=== PATIENT | male | born 1960 | race Caucasian/White ===

== ENCOUNTER 2020-08-18 19:28 | Inpatient (IN) | payer MEDICARE, OTHER ==
[2020-08-18 19:40] VITALS: BP 149/87
[2020-08-18] MEDS ORDERED: METF-440 PO (19:55)
[2020-08-18] MEDS ORDERED: DIVA-78 PO (19:55)
[2020-08-18] MEDS ORDERED: TRAZ150T75 PO (19:55)
[2020-08-18] MEDS ORDERED: CLON0.5T4 PO (19:55)
[2020-08-18] MEDS ORDERED: MULT-754 PO (19:55)
[2020-08-18] MEDS ORDERED: BLOO-1672 MC (19:55)
[2020-08-18] MEDS ORDERED: LISI-607 PO (19:55)
--- NOTE | 2020-08-18 20:00 | NUR ---
PAGED HOSPITALIST FOR ADMITTING ORDERS
[2020-08-18] MEDS ORDERED: PANT40TA2 PO (20:17)
[2020-08-18] MEDS ORDERED: ACET325C7 PO (20:17)
[2020-08-18] MEDS ORDERED: DOCU-141 PO (20:17)
[2020-08-18] MEDS ORDERED: LEVO50TA8 PO (20:17)
[2020-08-18] MEDS ORDERED: ENOX40DI SQ (20:17)
[2020-08-18] MEDS ORDERED: ATOR80TA PO (20:17)
[2020-08-18] MEDS ORDERED: FURO-145 IV (20:17)
[2020-08-18] MEDS ORDERED: ONDA-97 IV (20:17)
[2020-08-18] MEDS ORDERED: ASPI-1169 PO (20:17)
[2020-08-18] MEDS ORDERED: HYDR-4076 PO (20:17)
--- NOTE | 2020-08-18 20:30 | NUR ---
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 NEEDS ATTENDED AND STABLE
--- NOTE | 2020-08-18 21:25 | NUR ---
PAGED HOSPITALIST FOR ADMITTING ORDERS PER HOSPITALIST HE WILL LOOK AT IT
--- NOTE | 2020-08-18 22:30 | NUR ---
SPOKE TO Ruel GO UP WITH HOSPITALIST ADMITTING ORDERS AWAITING ORDERS
[2020-08-19] VITALS (27 sets, daily range): BP systolic 110–230; BP diastolic 70–171
--- NOTE | 2020-08-19 00:32 | NUR ---
PAGED AND FF UP WITH HOSPITALIST ADMITTING ORDERS PER HOSPITALIST HE WILL ENTER IT
[2020-08-19] MEDS ORDERED: MAGNESIUM HYDROXIDE 30 ML UDC PO PRN (01:00)
[2020-08-19] MEDS ORDERED: MAG HYDROX/AL HYDROX/SIMETH 30 ML UDC PO PRN (01:00)
[2020-08-19] MEDS ORDERED: *INSULIN REGULAR(HUMULIN R)HUM 100 UNIT/ML VIAL SQ PRN (01:00)
[2020-08-19] MEDS ORDERED: ONDANSETRON HCL/PF 4 MG/2 ML VIAL IVP PRN (01:00)
[2020-08-19] MEDS ORDERED: Medication Not On Formulary EA (Ondansetron Hcl 4 MG) IV PRN (01:00)
[2020-08-19] MEDS ORDERED: HYDROCODONE/APAP 5/325MG TABLET PO PRN (01:00)
[2020-08-19] MEDS ORDERED: DEXTROSE 50%-WATER 50 ML DISP.SYRIN IV PRN (01:00)
[2020-08-19] MEDS ORDERED: CLONIDINE HCL 0.1 MG TABLET PO PRN (01:00)
[2020-08-19] MEDS ORDERED: ACETAMINOPHEN 325 MG TABLET PO PRN (01:00)
[2020-08-19] MEDS ORDERED: Z GUARD REMEDY 2 OZ OINT TP PRN (01:00)
[2020-08-19] MEDS ORDERED: hydrALAZINE HCL 25 MG TABLET PO PRN (01:30)
--- NOTE | 2020-08-19 02:22 | NUR ---
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 PT DENIES PAIN, NO CHEST PAIN. NOT IN DISTRESS, STABLE. KEPT COMFORTABLE. SAFETY MEASURES AT ALL TIMES. WILL CONTINUE TO MONITOR.
[2020-08-19] MEDS ORDERED: IODIXANOL 150 ML IV ONE (05:44)
[2020-08-19] MEDS ORDERED: IV SET PRIMARY 1 EA INFUS.SET MC ONE ×2 (05:44→07:00)
[2020-08-19] MEDS ORDERED: IV NS 0.9% 1,000 ML ONE (05:44)
[2020-08-19] MEDS ORDERED: LIDOCAINE HCL/PF 1% 30 ML SDV ONE (05:45)
[2020-08-19] MEDS ORDERED: HEPARIN SODIUM, PORCINE 1,000 UNIT/ML VIAL ONE ×2 (05:46→07:10)
[2020-08-19] MEDS ORDERED: hydrALAZINE HCL 25 MG TABLET PO SCH (06:00)
[2020-08-19 06:19] LABS: BASOPHILS % (AUTO) 0.6 % (0.0-2.0); HEMATOCRIT 47 % (39-51); HEMOGLOBIN 15.2 g/dL (13.5-17.5); LYMPHOCYTES # (AUTO) 2.6 /CMM (0.8-4.8); LYMPHOCYTES % (AUTO) 34.1 % (20.0-44.0); MEAN CORPUSCULAR HGB CONC 33 g/dl (31.0-36.0); MEAN CORPUSCULAR VOLUME 83 fL (80-96); MONOCYTES # (AUTO) 0.6 /CMM (0.1-1.30); MONOCYTES % (AUTO) 7.7 % (2.0-12.0); NEUTROPHILS % (AUTO) 53.6 % (43.0-81.0); PLATELET COUNT (AUTO) 79 /CMM (150-450); RED BLOOD CELL COUNT(AUTO) 5.62 MIL/uL (4.5-6.0); WHITE BLOOD COUNT (AUTO) 7.5 K/uL (4.3-11.0)
--- NOTE | 2020-08-19 06:20 | NUR ---
PT LEFT TO CARDIAC CATH VIA BED ASSISTED BY 2 R.N PT EDUCATION PROVIDED PT VERBALIZED UNDERSTANDING. ALL NEEDS ATTENDED AND ANTICIPATED NO CHEST PAIN, KEPT CLEAN, DRY AND COMFORTABLE. ON CARDIAC MONITORING REMAINS SR. NO SIGNIFICANT CHANGES, MONITORED ACCORDINGLY.
[2020-08-19 06:26] LABS: CALCIUM, SERUM 8.8 mg/dL (8.5-10.1); CARBON DIOXIDE 25 mmol/L (21-32); CHLORIDE 103 mmol/L (98-107); CREATININE 1.2 mg/dL (0.6-1.3); GLUCOSE 113 mg/dL (74-106); POTASSIUM 4.2 mmol/L (3.5-5.1); SODIUM SERUM 138 mmol/L (136-145); UREA NITROGEN, BLOOD 24 mg/dL (7-18)
[2020-08-19] MEDS ORDERED: NITROGLYCERIN ICAR 1,000 MCG/10 ML VIAL ICAR ONE ×2 (06:45→07:48)
[2020-08-19] MEDS ORDERED: MIDAZOLAM HCL 2 MG/2ML VIAL ONE (06:45)
[2020-08-19] MEDS ORDERED: FENTANYL PF 100MCG/2ML AMPUL ONE (06:45)
[2020-08-19] MEDS ORDERED: LEVOTHYROXINE SODIUM 50 MCG TABLET PO SCH (07:00)
[2020-08-19] MEDS ORDERED: IV NS 0.9% 50 ML IV ONE (07:00)
[2020-08-19] MEDS: BLOOD SUGAR DIAGNOSTIC 1 EACH STRIP VI SCH ×3 (07:08→16:37)
[2020-08-19] MEDS: INSULIN REGULAR, HUMAN 100 UNIT/ML 3 ML VIAL SQ PRN ×2 (07:09→16:49)
--- NOTE | 2020-08-19 07:09 | NUR ---
endorse to next RN all belongings of the pt including wallet without money pt prefers his wallet at bedside.
--- NOTE | 2020-08-19 07:10 | NUR ---
CRAB BACKER NOTES PATIENT LEFT FOR CARDIAC CATH DURING NIGHTSHIFT. NIGHTSHIFT RN ENDORSE BELONGINGS AT BEDSIDE WHICH INCLUDING WALLET WITHOUT ANY MONEY INSIDE, PATIENT STATES TO KEEP WALLET AT BESIDE. DID NOT ADMINISTERED 0700 MEDICATION DUE TO PATIENT BEING IN CARDIAC CATH. WILL AWAIT FOR PATIENT.
[2020-08-19] MEDS ORDERED: IODIXANOL 320MG/ML 50 ML IV ONE (07:31)
[2020-08-19] MEDS ORDERED: ASPIRIN 81 MG TAB.CHEW ONE (07:43)
[2020-08-19] MEDS ORDERED: TICAGRELOR 90 MG TABLET PO ONE (07:43)
[2020-08-19] MEDS ORDERED: BIVALIRUDIN 250 MG/VIAL IV ONE (07:46)
--- NOTE | 2020-08-19 08:30 | NUR ---
ICU arrival post procedure note *keiry ying* Patient arrived via gurney s/p LAD PCI. Denies chest pain, no SOB noted, VSS see vitasigns, monitor per protocol. R Wrist ID band intact, no bleeding noted, distal pulses R radial palpable, sensation and circulation on R hand intact. Patient is verbal, A/Ox4, on room air w/ even and unlabored respirations, tele monitor attached, sinus yovani HR 52 w/ inverted T, L AC 20G infusing IVF as ordered, L urinal at bedside post op orders noted and carried out
[2020-08-19] MEDS ORDERED: ENOXAPARIN SODIUM 40 MG/0.4 ML DISP.SYRIN SQ SCH (09:00)
[2020-08-19] MEDS ORDERED: FUROSEMIDE 20 MG TABLET PO SCH (09:00)
[2020-08-19] MEDS ORDERED: MULTIVITAMINS,THERAGRAN 1 UDTAB TABLET PO SCH (09:00)
[2020-08-19] MEDS ORDERED: ASPIRIN 81 MG TAB.CHEW PO SCH (09:00)
[2020-08-19] MEDS ORDERED: PANTOPRAZOLE 40 MG TABLET.DR PO SCH (09:00)
[2020-08-19] MEDS ORDERED: LISINOPRIL (5MG) 5 MG TABLET PO SCH (09:00)
[2020-08-19 09:21] LABS: EOSINOPHILS % (MANUAL) 5 % (0-4); LYMPHOCYTES % (MANUAL) 26 % (16-48); MONOCYTES % (MANUAL) 9 % (0-11.0); NEUTROPHILS % (MANUAL) 60 (42-76)
[2020-08-19] MEDS ORDERED: IV NS 0.9% 1,000 ML IV SCH (10:00)
--- NOTE | 2020-08-19 10:00 | NUR ---
beginning to deflate R wrist MI band per protocol
--- NOTE | 2020-08-19 10:06 | NUR ---
spoke to Ira from pharmacy to clarify medication admin with Dr. Rey for anticoags/antiplts - PLT 79
--- NOTE | 2020-08-19 10:07 | NUR ---
WOUND CARE CONSULT: REVIEWED CHART, NURSING DOCUMENTATION AND PHOTOS WHICH INDICATE DRY SCRATCH ELLIS TO LOWER LEGS, PRESENT ON ADMISSION. PT IN ICU AT THIS TIME, S/P HEART CATH. CURRENT BARBARA SCORE IS 20. WILL SEE PRN. IN AGREEMENT WITH PLAN OF CARE.
--- NOTE | 2020-08-19 10:46 | NUR ---
Jonathan Roth from pharmacy clarified with Dr. Rey who is aware of low platelets, ok to give aspirin & brilenta
[2020-08-19] MEDS: DIVALPROEX SODIUM 500 MG TABLET.DR PO SCH ×2 (11:00→16:36)
--- NOTE | 2020-08-19 11:00 | NUR ---
R Wrist DE band half way deflated (6mL out), noted 10mL blood, patient moving wrist. continue to monitor, instruct patient not to move wrist and hold deflation
--- NOTE | 2020-08-19 13:00 | NUR ---
R Wrist HI band inflated with 7mL air -> total of 13mL due to continued bleeding ~10mL
--- NOTE | 2020-08-19 14:14 | NUR ---
R Wrist AR band taken off, cleaned by line maintenance technician Ashok, inflated w/ 10mL air, monitor for further bleeding
--- NOTE | 2020-08-19 14:40 | NUR ---
noted ~5 mL bleeding, infated cuff +3mL = total 13 mL air
--- NOTE | 2020-08-19 15:33 | NUR ---
per case making machine operator Regla patient being transferred to [facility]. CCU room 2, ALS transport, pick up truck driver @[id number], she will make primary Ike GRANADOS aware Addendum: 08/19/20 at 1536 by NATI CARVAJAL RN at [place] aware of [place] band bleeding per case making machine operator
[2020-08-19] MEDS ORDERED: APIXABAN 5 MG TABLET PO SCH (17:00)
[2020-08-19] MEDS ORDERED: TICAGRELOR 90 MG TABLET PO SCH (17:00)
--- NOTE | 2020-08-19 18:53 | NUR ---
physician communication Dr. Rey: -aware of wrist band bleeding (orders to hold eliquis tomorrow, try to deflate q30min as tolerated) -aware of high BP (orders to increase lisinopril dose tomorrow am to 20mg)
--- NOTE | 2020-08-19 19:25 | NUR ---
patient transfer to [facility] note Patient remains A/Ox4, on room air, SOP2 98%, no acute distress, denies SOB and chest pain, L AC 20G intact+patent. patient voided and ate with no difficulty. R wrist GA band on with bleeding, ~20mL blood loss this shift, inflated with 10mL air Report given to Fred, V BELT CURER belongings accounted for, checklist signed, meds sent with patient, no wound care pictures to be taken
[2020-08-19] MEDS ORDERED: DOCUSATE SODIUM 100 MG CAPSULE PO SCH (22:00)
[2020-08-19] MEDS ORDERED: ATORVASTATIN 40 MG TABLET PO SCH (22:00)
[2020-08-19] MEDS ORDERED: TRAZODONE 50 MG TABLET PO SCH (22:00)
[2020-08-19] MEDS ORDERED: clonazePAM 0.5 MG TABLET PO SCH (22:00)
[2020-08-20] MEDS ORDERED: ASPIRIN 81 MG TAB.CHEW PO SCH (09:00)
[2020-08-20] MEDS ORDERED: LISINOPRIL (5MG) 5 MG TABLET PO SCH (09:00)
== END 2020-08-19 19:30 | disposition short-term general hospital (02) | DRG 246 ==
LOC: TELE 19:28 → ICU 08-19 08:34
PROVIDERS: ADMIT Family Medicine; ATTEND Family Medicine
PROC: 4A023N7 Measurement of Cardiac Sampling and Pressure, Left Heart, Percutaneous Approach (ICD-10-PCS; principal; 2020-08-19)
PROC: 027034Z Dilation of Coronary Artery, One Artery with Drug-eluting Intraluminal Device, Percutaneous Approach (ICD-10-PCS; 2020-08-19)
PROC: B211YZZ Fluoroscopy of Multiple Coronary Arteries using Other Contrast (ICD-10-PCS; 2020-08-19)
PROC: B215YZZ Fluoroscopy of Left Heart using Other Contrast (ICD-10-PCS; 2020-08-19)
DX: I25.10 Atherosclerotic heart disease of native coronary artery without angina pectoris (principal); N17.0 Acute kidney failure with tubular necrosis; I63.522 Cerebral infarction due to unspecified occlusion or stenosis of left anterior cerebral artery; I50.21 Acute systolic (congestive) heart failure; I11.0 Hypertensive heart disease with heart failure; J44.9 Chronic obstructive pulmonary disease, unspecified; G40.909 Epilepsy, unspecified, not intractable, without status epilepticus; D69.6 Thrombocytopenia, unspecified; E11.51 Type 2 diabetes mellitus with diabetic peripheral angiopathy without gangrene; Z79.82 Long term (current) use of aspirin; Z79.84 Long term (current) use of oral hypoglycemic drugs; Z79.899 Other long term (current) drug therapy; E11.65 Type 2 diabetes mellitus with hyperglycemia; Z89.431 Acquired absence of right foot; E78.5 Hyperlipidemia, unspecified; E03.9 Hypothyroidism, unspecified; I25.5 Ischemic cardiomyopathy; I51.3 Intracardiac thrombosis, not elsewhere classified; R00.1 Bradycardia, unspecified
CPT/HCPCS: 36415; 80048-TC; 82962-TC; 84484-TC; 85025-TC; 87081-TC; A6403; C1725; C1769; C1887; G0378; G0500; J1644; J1815; J2250; J3010; J3490; Q9967